=== PATIENT | male | born 1975 | race Two or more races ===

== ENCOUNTER 2019-08-07 06:44 | Emergency (ER) | payer OTHER ==
[~2019-08-07] VITALS: Ht 180.3 cm; Wt 90.7 kg
[2019-08-07] MEDS ORDERED: KEFLEX500 MG PO (07:59)
== END 2019-08-07 08:19 | disposition home or self-care (01) ==
LOC: ER 06:44
DX: S01.112A Laceration without foreign body of left eyelid and periocular area, initial encounter (principal); W22.8XXA Striking against or struck by other objects, initial encounter; Y93.89 Activity, other specified; Y92.013 Bedroom of single-family (private) house as the place of occurrence of the external cause; Y99.8 Other external cause status